=== PATIENT | female | born 1945 | race Caucasian/White ===

== ENCOUNTER 2017-02-05 08:10 | Day surgery (SDC) | payer MEDICARE, OTHER ==
[~2017-02-05 08:10] MED LIST: LIDOCAINE HCL 1% MPF SOL ONE; PROPOFOL 500 MG/50 ML EMU IV ONE
[2017-02-05 09:49] VITALS: O2SAT 97
[2017-02-05 10:15] VITALS: BP 153/75; PULSE 53; RESP 20; TEMP 96.9
== END 2017-02-05 10:30 | disposition home or self-care (01) | DRG 951 ==
LOC: SURG 08:10
PROVIDERS: ATTEND Surgery
DX: Z12.11 Encounter for screening for malignant neoplasm of colon (principal); Z86.010 Personal history of colon polyps
CPT/HCPCS: J2001; J2704